=== PATIENT | male | born 1980 | race Caucasian/White ===

== ENCOUNTER 2019-06-15 23:07 | Emergency (ER) | payer MEDICAID ==
[2019-06-15 23:22] VITALS: BP 147/95; PULSE 125; RESP 18; TEMP 97.6
--- NOTE | 2019-06-15 23:29 | ED ---
Fall HPI - General Chief Complaint: Fall Stated Complaint: Fall, Head Injury Time Seen by Provider: 06/15/19 23:19 Source: EMS Mode of arrival: EMS - History of Present Illness MD Complaint: fall -: minutes(s) Fall From: standing When Fall Occurred: just prior to arrival Fall Witnessed: yes, by bystander Place Fall Occurred: home Loss of Consciousness: yes Prolonged Down Time?: no Symptoms Prior to Fall: none Location: head Severity: moderate Context: tripped/slipped, alcohol use Associated Symptoms: headache Review of Systems ROS Statement: Those systems with pertinent positive or pertinent negative responses have been documented in the HPI. ROS Other: All systems not noted in ROS Statement are negative. Constitutional: Denies: fever, weakness Eyes: Denies: eye pain, vision change ENT: Reports: epistaxis. Denies: ear pain, hearing loss Respiratory: Denies: cough, dyspnea Cardiovascular: Denies: chest pain, palpitations Gastrointestinal: Denies: abdominal pain, nausea, vomiting Musculoskeletal: Denies: back pain Skin: Denies: rash Neurological: Reports: as per HPI, headache. Denies: weakness, numbness, paresthesias, confusion Hematological/Lymphatic: Denies: easy bleeding General Exam General appearance: alert, in no apparent distress, appears intoxicated Head exam: Present: normocephalic, other ( does have approximately 4 cm diameter hematoma to the left parieto-occipital area. There is tenderness to the exam but no obvious deformity.) Eye exam: Present: normal appearance, PERRL, EOMI, nystagmus. Absent: scleral icterus, conjunctival injection ENT exam: Present: normal oropharynx, mucous membranes moist, TM's normal bilaterally, normal external ear exam, other (Dried blood right naris) Neck exam: Present: normal inspection, full ROM. Absent: tenderness, meningismus Respiratory exam: Present: normal lung sounds bilaterally. Absent: respiratory distress, wheezes, rales, rhonchi, stridor Cardiovascular Exam: Present: regular rate, normal rhythm, normal heart sounds. Absent: systolic murmur, diastolic murmur, rubs, gallop GI/Abdominal exam: Present: soft. Absent: distended, tenderness, guarding, rebound, rigid, mass Extremities exam: Present: normal inspection, normal capillary refill. Absent: pedal edema, calf tenderness Back exam: Present: normal inspection. Absent: CVA tenderness (R), CVA tenderness (L), vertebral tenderness Neurological exam: Present: alert, oriented X3, CN II-XII intact. Absent: motor sensory deficit Skin exam: Present: warm, dry, intact, normal color. Absent: rash Course Vital Signs 06/15/19 23:18 Temperature 97.6 F Pulse Rate 125 H Respiratory 18 Rate Blood Pressure 147/95 O2 Sat by Pulse 98 Oximetry Medical Decision Making - EKG Data -: EKG Interpreted by Hi EKG shows normal: sinus rhythm, axis (Normal), intervals (Normal), ST-T waves (Normal) Rate: tachycardia (Rate 119 bpm) Interpretation: LVH (By voltage criteria), other (Q waves in leads 3 and aVF but no previous ECG for comparison.) Disposition Clinical Impression: Fall, Closed head injury Disposition: HOME SELF-CARE Condition: Good Instructions (If sedation given, give patient instructions): Head Injury (ED) Is patient prescribed a controlled substance at d/c from ED?: No Referrals: None,Stated [Primary Care Provider] - 1-2 days Antonio La MD [STAFF PHYSICIAN] - 1-2 days
--- NOTE | 2019-06-15 23:46 | CT ---
EXAMINATION TYPE: CT brain wo con DATE OF EXAM: 06/15/2019 COMPARISON: None HISTORY: Trauma Headache CT DLP: 1099.4 mGycm Automated exposure control for dose reduction was used. Ventricles and sulci appear normal. There is no mass effect nor midline shift. There is no sign of in tracranial hemorrhage. The calvarium is intact. There is left parietal scalp hematoma. Skull base is intact. IMPRESSION: Scalp hematoma. No acute intracranial abnormality.
== END 2019-06-16 00:32 | disposition home or self-care (01) ==
LOC: EC 23:07
DX: S00.03XA Contusion of scalp, initial encounter (principal); F10.129 Alcohol abuse with intoxication, unspecified; H55.00 Unspecified nystagmus; R00.0 Tachycardia, unspecified; W01.0XXA Fall on same level from slipping, tripping and stumbling without subsequent striking against object, initial encounter; Y92.009 Unspecified place in unspecified non-institutional (private) residence as the place of occurrence of the external cause
CPT/HCPCS: 70450; 99284

== ENCOUNTER → 2020-10-14 | Outpatient (CLI) | payer MEDICAID ==
--- NOTE | 2020-10-14 08:44 | CT ---
EXAMINATION TYPE: CT soft tissue neck w con DATE OF EXAM: 10/14/2020 HISTORY: Localized swelling and mass. Lump. COMPARISON: NONE CT DLP: 762 mGycm. Automated Exposure Control for Dose Reduction was Utilized. TECHNIQUE: CT scan of the neck is performed with IV Contrast, patient injected with 100 mL of Isovue 300, axial images are obtained, coronal and sagittal reformatted images are reviewed. FINDINGS: Airway: Metallic BB placed at site of abnormality axial image 47 at level of vocal cords. Normal size and fairly homogeneous thyroid gland is seen below this with somewhat thin thyroid isthmus. There is heterogeneous lobulated hyperdense or enhancing mass slightly less prominent than thyroid gland alexey uring 2.4 x 1.7 cm axial image 49 x 2.2 cm craniocaudal dimension coronal image 54. Local mass effect is present appears to be bulging the strap muscles anteriorly. Parotid/submandibular glands: No gross abnormality seen. Carotid/Vascular Structures: No significant plaque or stenosis. Osseous Structures: No significant abnormality. Other: There is 1.5 x 1.3 cm additional heterogeneous hyperdense lesion left neck at level of vocal c ord superior to the primary lesion with punctate calcification approximate 41. Additional hyperdense scattered left neck mass and represents 1.8 x 1.9 cm lesion adjacent to left thyroid lobe axial image 51. Lesions extend into the anterior superior mediastinum with 1.9 x 1.4 cm lesion seen on axial mable ge 65 posterior to the 3 great vessels. There is 1.6 x 1.5 cm posterior left cervical lesion at level of hyoid bone axial image 36. Nasal septum incidentally deviated to the right of midline. IMPRESSION: Multiple hyperdense and/or heterogeneous enhancing masses with some calcification as deta iled above corresponding to palpable abnormality and scattered throughout the left neck from hyoid kiara ne extending to the anterior superior mediastinum. One must consider metastatic thyroid neoplasm vers us other neoplastic metastatic disease. Advise endocrine referral and clinical correlation to further evaluate.
== END ==
LOC: RADCTMAIN 07:35
PROVIDERS: ATTEND Family Medicine
DX: R22.1 Localized swelling, mass and lump, neck (principal)
CPT/HCPCS: 70491; Q9967

== ENCOUNTER 2020-11-04 12:56 | Day surgery (SDC) | payer MEDICAID ==
[2020-11-04 13:35] VITALS: RESP 18; TEMP 98.2
--- NOTE | 2020-11-04 14:35 | US ---
ULTRASOUND GUIDED CORE BIOPSY LEFT NECK CLINICAL HISTORY: Left neck mass FINDINGS: The procedure was explained to the patient. The risks, complications, benefits and alternatives were discussed and any questions were answered. Informed consent was obtained. Patient was placed supin e on the ultrasound table and prepped and draped in the usual sterile fashion. Utilizing a 18 gauge needle, two passes were made into the left neck mass. Patient was stable throughout the procedure. Pathology is pending. All elements of maximal barrier sterile technique were utilized. IMPRESSION: 1. Successful ultrasound guided biopsy left neck mass.
[2020-11-04 14:59] VITALS: BP 148/79; PULSE 87
== END 2020-11-04 14:55 | disposition home or self-care (01) ==
LOC: RADPROMAIN 12:56
PROVIDERS: ATTEND Surgery
DX: C73 Malignant neoplasm of thyroid gland (principal)
CPT/HCPCS: 21550; 88305; 88341; 88342

== ENCOUNTER → 2020-11-15 | Outpatient (CLI) | payer MEDICAID ==
--- NOTE | 2020-11-15 08:33 | US ---
EXAMINATION TYPE: US thyroid st tissue head/neck DATE OF EXAM: 11/15/2020 COMPARISON: NONE CLINICAL HISTORY: C73 THYROID CA. Thyroid CA left lymph nodes biopsied look for right lymph nodes. GLAND SIZE: Right Lobe: 4.3 x 1.8 x 1.4 cm Overall Parenchyma: homogenous Left Lobe: 4.0 x 1.6 x 1.7 cm Overall Parenchyma: homogeneous Isthmus Thickness: cm NODULES RIGHT: # of nodules measured on right: 0 LEFT: # of nodules measured on left: 0 ISTHMUS: # of nodules measured in the isthmus: .3 cm 1. 1.6 cm, hypoechoic nodule, with lobulated or irregular margins, without echogenic foci. Prior size no prior Lymph nodes visualized in the left neck largest measuring 2.6 x 1.3 x 1.7 cm. IMPRESSION: 1.6 cm hypoechoic nodule of the isthmus. Enlarged left neck lymph nodes. 2017 ACR TI-RADS LEVEL: TR-RADS 4 - Moderately Suspicious: Follow if > 1 cm, FNA if > 1.5 cm *Highest TI-RADS level nodule reported
== END | disposition home or self-care (01) ==
LOC: RADUSWWP 07:40
PROVIDERS: ATTEND Internal Medicine
DX: C73 Malignant neoplasm of thyroid gland (principal)
CPT/HCPCS: 76536

== ENCOUNTER → 2021-01-15 | Outpatient (CLI) | payer MEDICAID | END | disposition home or self-care (01) | LOC: LABWHC1 08:33 | PROVIDERS: ATTEND Internal Medicine | DX: C73 Malignant neoplasm of thyroid gland (principal) | CPT/HCPCS: 82570; 83789 ==

== ENCOUNTER → 2021-01-23 | Outpatient (CLI) | payer MEDICAID ==
[2021-01-24 01:13] LABS: Magnesium 2.1 mg/dL (1.5-2.4); Phosphorus 4.6 mg/dL (2.4-5.1)
[2021-01-24 03:10] LABS: T4, Free (Free Thyroxine) <0.10 ng/dL (0.80-1.80)
== END | disposition home or self-care (01) ==
LOC: LABWHC1 09:17
PROVIDERS: ATTEND Internal Medicine
DX: C73 Malignant neoplasm of thyroid gland (principal)
CPT/HCPCS: 36415; 82310; 83735; 84100; 84432; 84439; 84443; 86800

== ENCOUNTER → 2021-01-29 | Outpatient (CLI) | payer MEDICAID ==
--- NOTE | 2021-01-30 09:30 | NM ---
EXAMINATION TYPE: NM thyroid uptake only single DATE OF EXAM: 01/30/2021 COMPARISON: Thyroid ultrasound November 15, 2020. CT neck October 14, 2020 HISTORY: Newly diagnosed thyroid cancer. Following administration of 317 uCi I-123 Capsule uCi I-123 capsule. 24 hour uptake imaging performed . FINDINGS: The 24 hour iodine uptake is calculated at 1.4%, diminished from the normal range. IMPRESSION: As above.
== END | disposition home or self-care (01) ==
LOC: RADNMMAIN 08:41
PROVIDERS: ATTEND Internal Medicine
DX: C73 Malignant neoplasm of thyroid gland (principal)
CPT/HCPCS: 78012; A9516

== ENCOUNTER → 2021-02-04 | Outpatient (CLI) | payer MEDICAID ==
--- NOTE | 2021-02-04 19:20 | NM ---
EXAMINATION TYPE: NM Thyroid Iodine Therapy Oral DATE OF EXAM: 02/04/2021 COMPARISON: 01/29/2021 thyroid uptake HISTORY: 40-year-old male C73, thyroid cancer. 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 3 microscopic foci within the left lobe. Positive for multiple bilate ral cervical lymphadenopathy. Patient to return on day 2 and day 3 for posttreatment scan. RADIOTRACER: 148.7 mCi I-131. TECHNIQUE: Dose was prescribed (written directive) by an Authorized User for patient's I-131 whole-b david scan in conjunction with treatment order by Dr. Chaparro. Risks, benefits, and potential complications of radioactive I-131 therapy were discussed with the pat ient by myself and the nuclear powerplant supervisor. Verbal and written informed consent were obtained . Written instructions were given for radiation safety precautions to be observed for 5 days outpatie nt. The patient specific exposure calculations were done by RSO to ensure estimated max dose to any indiv idual exposed to the patient was less than 5 mSv. The patient was specifically advised to avoid close contact with children, women, and other members of public. Dose was verified in dose caliber and patient was given oral I-131 pill under the supervision of the nuclear powerplant supervisor. There were no immediate complications. IMPRESSION: Outpatient 148.7 mCi I-131 oral therapy capsule for thyroid remnant ablation in the setting of known cervical lymphadenopathy. Patient to return for posttreatment whole body scan on day 2 and day 3.
== END | disposition home or self-care (01) ==
LOC: RADNMMAIN 12:57
PROVIDERS: ATTEND Internal Medicine
DX: C73 Malignant neoplasm of thyroid gland (principal); R59.0 Localized enlarged lymph nodes
CPT/HCPCS: 79005; A9517

== ENCOUNTER → 2021-02-06 | Outpatient (CLI) | payer MEDICAID ==
--- NOTE | 2021-02-07 15:07 | NM ---
EXAMINATION TYPE: NM I-131 Whole Body Imaging DATE OF EXAM: 02/07/2021 COMPARISON: NONE HISTORY: Papillary thyroid cancer Following the oral administration of 148.7 mCi iodine-131 whole body imaging is performed. Imaging wa s performed at 48 and 72 hours. FINDINGS: Uptake is in the region of the thyroid can be compatible with the papillary thyroid cancer. There is some focal uptake within the mid facial region. This is present on both 48 and 72 hour imagi ng. This is of uncertain significance. Consider direct visualization or CT paranasal sinuses. Salivary gland uptake is noted this appears symmetrical. There is normal excretion through the colon. No additional suspicious areas of abnormal uptake are identified. IMPRESSION: 1. Uptake in the region of the thyroid. 2. Uptake in appears to be the nasal passage in the midline. Consider CT sinuses and direct visualiza tion for additional evaluation.
== END | disposition home or self-care (01) ==
LOC: RADNMMAIN 13:20
PROVIDERS: ATTEND Internal Medicine
DX: C73 Malignant neoplasm of thyroid gland (principal)
CPT/HCPCS: 78018

== ENCOUNTER → 2021-03-06 | Outpatient (CLI) | payer MEDICAID ==
[2021-03-06 18:04] LABS: T4, Free (Free Thyroxine) 1.46 ng/dL (0.800-1.800)
== END | disposition home or self-care (01) ==
LOC: LABWHC1 08:58
PROVIDERS: ATTEND Internal Medicine
DX: C73 Malignant neoplasm of thyroid gland (principal)
CPT/HCPCS: 36415; 84439; 84443

== ENCOUNTER → 2021-05-29 | Outpatient (CLI) | payer MEDICAID ==
--- NOTE | 2021-05-29 10:04 | US ---
EXAMINATION TYPE: US thyroid st tissue head/neck DATE OF EXAM: 05/29/2021 COMPARISON: Most recent US 11/15/20. Correlation I-131 whole body scan 02/06/2021 CLINICAL HISTORY: 40-year-old male C73 Malignant neoplasm of thyroid gland. Total thyroidectomy, also removed 33 lymph nodes. GLAND SIZE: Right Lobe: Surgically absent Left Lobe: Surgically absent Isthmus Thickness: Surgically absent NODULES RIGHT: # of nodules measured on right: 0 LEFT: # of nodules measured on left: 0 ISTHMUS: # of nodules measured in the isthmus: 0 Bilateral neck scanned, no evidence of lymphadenopathy. IMPRESSION: The thyroidectomy bed appears clear. No cervical lymphadenopathy seen.
== END | disposition home or self-care (01) ==
LOC: RADUSWWP 08:09
PROVIDERS: ATTEND Internal Medicine
DX: C73 Malignant neoplasm of thyroid gland (principal)
CPT/HCPCS: 76536

== ENCOUNTER → 2021-06-05 | Outpatient (CLI) | payer MEDICAID ==
[2021-06-05 16:05] LABS: T4, Free (Free Thyroxine) 2.08 ng/dL (0.800-1.800)
== END | disposition home or self-care (01) ==
LOC: LABWHC1 08:05
PROVIDERS: ATTEND Internal Medicine
DX: C73 Malignant neoplasm of thyroid gland (principal); E03.9 Hypothyroidism, unspecified
CPT/HCPCS: 36415; 84432; 84439; 84443; 86800

== ENCOUNTER → 2021-12-03 | Outpatient (CLI) | payer MEDICAID ==
--- NOTE | 2021-12-03 09:49 | US ---
EXAMINATION TYPE: US thyroid st tissue head/neck DATE OF EXAM: 12/03/2021 COMPARISON: Prior thyroid ultrasound May 29 11/10/2021 CLINICAL HISTORY: C73 Thyroid ca. Complete ectomy, CA last year GLAND SIZE: Right Lobe: Surgically absent Left Lobe: Surgically absent Isthmus Thickness: Surgically absent NODULES RIGHT: # of nodules measured on right: 0 LEFT: # of nodules measured on left: 0 ISTHMUS: # of nodules measured in the isthmus: 0 Bilateral neck scanned, no evidence of lymphadenopathy. IMPRESSION: No suspicious recurrent tissue or abnormal adenopathy seen on images saved. No significan t change from prior.
[2021-12-03 17:12] LABS: T4, Free (Free Thyroxine) 2.67 ng/dL (0.800-1.800)
== END | disposition home or self-care (01) ==
LOC: RADUSWWP 08:07
PROVIDERS: ATTEND Internal Medicine
DX: C73 Malignant neoplasm of thyroid gland (principal); E03.9 Hypothyroidism, unspecified
CPT/HCPCS: 76536; 84432; 84439; 84443; 86800

== ENCOUNTER → 2022-04-10 | Outpatient (CLI) | payer MEDICAID ==
[2022-04-10 18:36] LABS: T4, Free (Free Thyroxine) 3.56 ng/dL (0.800-1.800)
== END | disposition home or self-care (01) ==
LOC: LABWHC1 12:16
PROVIDERS: ATTEND Internal Medicine
DX: C73 Malignant neoplasm of thyroid gland (principal); E03.9 Hypothyroidism, unspecified
CPT/HCPCS: 36415; 84439; 84443

== ENCOUNTER → 2022-10-15 | Outpatient (CLI) | payer MEDICAID ==
--- NOTE | 2022-10-15 12:45 | US ---
EXAMINATION TYPE: US thyroid st tissue head/neck DATE OF EXAM: 10/15/2022 COMPARISON: NONE CLINICAL INDICATION: Male, 42 years old with history of C73 PAPILLARY CARCINOMA OF THYROID; h/o thyro idectomy 2 years ago Technique and findings: Ore Trimmer notes: Bilateral neck scanned, no evidence of lymphadenopathy or residual tissue seen at this time. IMPRESSION: No suspicious cervical lymphadenopathy identified. The thyroidectomy bed appears clear.
[2022-10-15 15:54] LABS: T4, Free (Free Thyroxine) 2.8 ng/dL (0.800-1.800)
== END | disposition home or self-care (01) ==
LOC: RADUSWWP 08:17
PROVIDERS: ATTEND Internal Medicine
DX: C73 Malignant neoplasm of thyroid gland (principal); E03.9 Hypothyroidism, unspecified
CPT/HCPCS: 36415; 76536; 84432; 84439; 84443; 86800

== ENCOUNTER → 2023-09-22 | Outpatient (CLI) | payer MEDICAID ==
[2023-09-22 10:25] LABS: Basophils # (A) 0.07 X 10*3/uL (0.00-0.10); Basophils % (A) 1.1 %; Eosinophils # (A) 0.09 X 10*3/uL (0.04-0.35); Eosinophils % (A) 1.4 %; HGB 15.3 g/dL (13.0-17.0); Lymphocytes # (A) 1.83 X 10*3/uL (0.90-5.00); Lymphocytes % (A) 28.4 %; MCV 85.2 FL (80.0-97.0); Mean Platelet Volume 9.8 FL (9.5-12.2); Monocytes # (A) 0.41 X 10*3/uL (0.20-1.00); Monocytes % (A) 6.4 %; NRBC Per 100 WBC 0 X 10*3/uL (0.00-0.01); Neutrophils # (A) 4.03 X 10*3/uL (1.80-7.70); Neutrophils % (A) 62.5 %; Platelet Count 271 X 10*3/uL (140-440); RBC 5.28 X 10*6/uL (4.40-5.60); RDW 11.9 % (11.5-14.5); WBC 6.44 X 10*3/uL (4.50-10.00)
[2023-09-22 11:52] LABS: Hepatitis B Surface Antigen Nonreactive (Nonreactive); Hepatitis C IgG Antibody Nonreactive (Nonreactive)
[2023-09-22 12:15] LABS: ALT 39 U/L (10-49); AST 29 U/L (14-35); Albumin 4.6 g/dL (3.8-4.9); Albumin/Globulin Ratio 1.77 Ratio (1.60-3.17); Alkaline Phosphatase 63 U/L (41-126); BUN/Creat Ratio 11.27 Ratio (12.00-20.00); Blood Urea Nitrogen 12.4 mg/dL (9.0-27.0); Calcium 8.8 mg/dL (8.7-10.3); Carbon Dioxide 23.7 mmol/L (21.6-31.8); Chloride 100 mmol/L (96-109); Globulin 2.6 g/dL (1.6-3.3); Glucose 126 mg/dL (70-110); Potassium 4.1 mmol/L (3.5-5.5); Sodium 140 mmol/L (135-145); Total Protein 7.2 g/dL (6.2-8.2)
== END | disposition home or self-care (01) ==
LOC: LABWHC1 07:58
PROVIDERS: ATTEND Nurse Practitioner Family
DX: K76.0 Fatty (change of) liver, not elsewhere classified (principal); R74.01 Elevation of levels of liver transaminase levels
CPT/HCPCS: 36415; 80053; 81596; 85025; 86803; 87340

== ENCOUNTER → 2023-10-19 | Outpatient (CLI) | payer MEDICAID ==
[2023-10-19 20:09] LABS: T4, Free (Free Thyroxine) 2.22 ng/dL (0.80-1.80)
--- NOTE | 2023-10-20 14:29 | US ---
EXAMINATION TYPE: US thyroid st tissue head/neck DATE OF EXAM: 10/19/2023 COMPARISON: US 2022 CLINICAL INDICATION: Male, 43 years old with history of C73 MALIGNANT NEOPLASM OF THYROID GLAND; Thyr oidectomy RIGHT: surgically absent LEFT: surgically absent ISTHMUS: surgically absent Bilateral neck scanned, no evidence of lymphadenopathy. IMPRESSION: No suspicious soft tissue within the thyroid bed
== END | disposition home or self-care (01) ==
LOC: RADUSWWP 14:01
PROVIDERS: ATTEND Internal Medicine
DX: C73 Malignant neoplasm of thyroid gland (principal); E03.9 Hypothyroidism, unspecified
CPT/HCPCS: 76536; 84432; 84439; 84443; 86800

== ENCOUNTER 2024-06-27 10:14 | Day surgery (SDC) | payer MEDICAID ==
[2024-06-19 11:44] VITALS: BMI 30.8
[~2024-06-27 10:14] MED LIST: LACTATED RINGERS 1,000 ML IV SCH
[2024-06-27 10:27] VITALS: TEMP 97.9
[2024-06-27] MEDS: LACTATED RINGERS 1,000 ML IV ONE (10:38)
[2024-06-27] MEDS ORDERED: LIDOCAINE 1% INJ 10MG/ML (20 ML MDV) ONE (11:04)
[2024-06-27] MEDS ORDERED: PROPOFOL 10 MG/ML 20 ML VIAL IV ONE (11:04)
--- NOTE | 2024-06-27 11:15 | P.PCN ---
Date of Procedure: 06/27/24 Procedure(s) Performed: BRIEF HISTORY: Patient is a 43-year-old pleasant male scheduled for an elective colonoscopy as a part of screening for colon cancer. PROCEDURE PERFORMED: Colonoscopy. PREOPERATIVE DIAGNOSIS: Screening for colon cancer. IV sedation per Anesthesia. PROCEDURE: After informed consent was obtained, the patient, was brought into the endoscopy unit. IV sedation was administered by Anesthesia under continuous monitoring. Digital rectal examination was normal. Initially the Olympus CF-160 flexible video colonoscope was then inserted in the rectum, gradually advanced into the cecum without any difficulty. Careful examination was performed as the scope was gradually being withdrawn. Ileocecal valve and the appendiceal orifice were visualized and appeared normal. Prep was excellent. Mucosa of the cecum, ascending colon, transverse colon, descending colon, sigmoid colon, and rectum appeared normal. Retroflexion was performed in the rectum and no lesions were seen. The patient tolerated the procedure well. IMPRESSION: Normal-appearing colon from rectum to cecum no recent colorectal neoplasia. RECOMMENDATIONS: Findings of this examination were discussed with the patient as well as the his family. He was advised to have repeat screening colonoscopy in 10 years..
[2024-06-27 11:38] VITALS: BP 111/69; PULSE 72; RESP 18
== END 2024-06-27 11:53 | disposition home or self-care (01) ==
LOC: ORWHC2ENDO 10:14
PROVIDERS: ATTEND Internal Medicine Gastroenterology
DX: Z12.11 Encounter for screening for malignant neoplasm of colon (principal)
CPT/HCPCS: 45378; J2003; J2704